=== PATIENT | male | born 1955 | race Caucasian/White ===

== ENCOUNTER 2017-05-05 10:20 | Emergency (ER) | payer MEDICARE ==
[2016-04-27 06:27] VITALS: BMI 28.5
[~2017-05-05 10:20] MED LIST: BAYER CHEWABLE81 MG PO; BENICAR HCT 20-1 TA1 PO; BYSTOLIC10 MG PO; BYSTOLIC20 MG PO; COUMADIN5 MG PO; CRESTOR20 MG PO; CYMBALTA60 MG PO; JANTOVEN7.5 MG PO; PERCOCET 10/3251 TA1 PO; ROBAXIN-750750 MG PO; ZYLOPRIM100 MG PO
== END 2017-05-05 12:54 | disposition home or self-care (01) ==
LOC: D.ER 10:20
DX: M54.30 Sciatica, unspecified side (principal); M54.5 Low back pain

== ENCOUNTER → 2017-05-07 08:49 | Outpatient (CLI) | payer MEDICARE ==
[2016-04-27 06:27] VITALS: BMI 28.5
== END | disposition home or self-care (01) ==
LOC: D.MRI 08:49
DX: M54.31 Sciatica, right side (principal)

== ENCOUNTER 2017-06-10 17:43 | Inpatient (IN) | payer MEDICARE ==
[~2017-06-10] VITALS: Ht 182.9 cm; Wt 70.5 kg
--- NOTE | ~2017-06-10 | OP ---
PATIENT NAME: CECILY HENSLEY MEDICAL RECORD: [id number] :51 LOCATION:D.MS [facility] ADMISSION DATE:06/10/17 SURGEON: YESSI LIZAMA MD DATE OF OPERATION: 06/12/2017 PREOPERATIVE DIAGNOSIS: Synovial cyst formations, epidural mass at L4-L5 on the right. POSTOPERATIVE DIAGNOSIS: Synovial cyst formations, epidural mass at L4-L5 on the right. PROCEDURES: Lumbar laminectomy, medial facetectomy and foraminotomy at L4-L5 on the right with METRx retractor, resection of synovial cyst with microdissection. SURGEON: Yessi Lizama MD DESCRIPTION AND TECHNIQUE: After induction of general endotracheal anesthesia, the patient was rolled prone on chest and hip rolls. The lumbar spine was prepped and draped in usual sterile fashion. Fluoroscopic x-ray and spinal needle localized the L4-L5 interspace on the right side. A series of dilators were used to advance a METRx retractor to the L4-L5 interspace on the right side. The level was confirmed with fluoroscopic x-ray. A microscope and Midas Suman drill were used to perform a laminectomy at L4 and L5 on the right as well as the medial facetectomy and foraminotomy. Hypertrophied ligamentum flavum was removed with Cloward rongeurs. In the process of removing the ligamentum flavum, it was obvious that epidural mass adherent to the ligamentum flavum as well as the dura. This was dissected free with microdissectors and microscope. Following this, the dura was completely decompressed. A further foraminotomy was carried out with a Cloward rongeurs. Following this, meticulous hemostasis was maintained throughout the wound. The wound was irrigated with copious amounts of Ancef irrigant solution. The fascia was closed with 2-0 Vicryl suture and the subdermal layer was closed with 3-0 Vicryl suture. The skin was closed with emely. A sterile dressing was applied to the wound. The patient was awakened in good condition and taken to recovery. All counts were reported as correct. Estimated blood loss was minimal. TRANSINT:[id number] Voice Confirmation ID: [id number] DOCUMENT ID: [id number] YESSI LIZAMA MD CC: [id number] DICTATION DATE: 06/12/171940 ELECTRONIC TECHNOLOGIST: 06/12/172204 ADM IN [facility] [address] [place] [address]
--- NOTE | ~2017-06-10 | CN ---
PATIENT NAME:AYDENCECILY TURNER MEDICAL RECORD: [id number] : 51 LOCATION:D.MS [facility]24 ADMIT DATE: 06/10/17 ACCOUNT: [id number] CONSULTING PHYSICIAN: CRIS DE SANTIAGO MD REFERRING PHYSICIAN: SEILNA CANDELARIO MD DATE OF CONSULTATION: 06/15/2017 Consultation Note Addendum CHIEF COMPLAINT: Bleeding. HISTORY OF PRESENT ILLNESS: I was asked by one of the nurse on the floor to come see this patient. The patient had been admitted and underwent surgery. 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 Anyhow, he accidentally knocked the scab off this and due to a high INR, he has continued to bleed from the area. He has had pretty significant amount of blood loss. I saw the patient and we contacted Dr. Candelario, who allowed me to be a home performance consultant for this patient. We have applied a pulse oximeter probe to the lip as a clamp on the inside and outside of the lip and then applied some Surgicel over the bleeding area. The area is no longer bleeding, so his symptoms are improved. He is a little bit confused due to some anxiolytics and analgesics that he has received, but anyhow at least we have got the bleeding stopped for now. I have also elevated the head of his bed to decrease the venous pressure in his face and hopefully that will help prevent him from rebleeding. This is a consultation note addendum. For the typed portion of the consult note, please see the chart. This would include the past medical and surgical history, allergies, social history, family history, as well as current medications. REVIEW OF SYSTEMS: Positive for back pain, no nausea, no vomiting, no fever, no chills. Positive for some slowed speech, positive for some altered mental status, which is very mild. No chest pain, no shortness of breath. The review of systems is negative other than as is described above. PHYSICAL EXAMINATION: GENERAL: The patient appears acutely ill. He does not appear chronically ill. VITAL SIGNS: Reviewed. EARS: External ears appear normal. HEAD: Bleeding from the lower lip on the left. NECK: Trachea is midline. CHEST: No intercostal retractions. PULMONARY: Nonlabored, no stridor. ABDOMEN: No peritonitis with movement. EXTREMITIES: No peripheral cyanosis. INTEGUMENT: Bleeding from the operative site on the lower lip. PSYCHIATRIC: Normal affect. NEUROLOGIC: Nonfocal, no lethargy. The patient answers questions appropriately; however, his speech is slowed. He is somewhat somnolent as well. BACK: No thoracic kyphosis. LYMPHATICS: No lymphangitic streaking of the exposed extremities. IMPRESSION: Bleeding from the operative site from a dermatologic procedure. Through our interventions, the bleeding has now stopped. CONSULT REPORT [id number] AYDENCECILY TURNER PLAN: I will see the patient on a p.r.n. basis. TRANSINT:[id number] Voice Confirmation ID: [id number] DOCUMENT ID: [id number] CRIS DE SANTIAGO MD CC: [id number] DICTATION DATE: 06/15/171812 ARGON TESTER: 06/15/172015 ADM IN [facility] [address] [place] [address]
--- NOTE | 2017-06-10 18:36 | NUR ---
REC'D IN ROOM ASSESSMENT PER ADMIT PACKET. SALINE LOCK PLACED TO LEFT FOREARM #22G ANGIOICATH. NS AT [facility] STARTED ORDERED.
[2017-06-10] MEDS ORDERED: COUMADIN5 MG PO (18:45)
[2017-06-10] MEDS ORDERED: PERCOCET 10/3251 TA1 PO (18:46)
[2017-06-10 18:48] LABS: BASOPHILS 0.3 % (0-2); EOSINOPHILS 0.4 % (0-7); HEMATOCRIT 38.3 % (42.0-54.0); HEMOGLOBIN 13.4 g/dL (13.5-17.5); IMMATURE GRANULOCYTES 0.1 % (0-5); LYMPHOCYTES 14.6 % (15-50); MCH 31.2 pg (26.0-34.0); MCV 89.1 fL (80.0-100.0); MEAN PLATELET VOLUME 10.6 fL (7.4-10.4); MONOCYTES 6.1 % (2-11); NEUTROPHILS 78.5 % (40-80); PLATELET COUNT 183 10x3/uL (130-400); RDW 13.8 % (11.5-14.5); WBC 7.9 10x3/uL (4.8-10.8)
[2017-06-10 19:01] LABS: INR 2.05 (0.85-1.17); PROTIME 23.1 SECONDS (11.6-15.0)
[2017-06-10] MEDS ORDERED: MULTIPLE VITAMI1 TA1 PO (19:10)
[2017-06-10 19:34] LABS: ALBUMIN 4.2 g/dL (3.4-5.0); ANION GAP 13.9 mmol/L (8-16); CALCIUM 9.8 mg/dL (8.5-10.1); CARBON DIOXIDE 24.8 mmol/L (21.0-32.0); CREATININE - SERUM 1.4 mg/dL (0.6-1.3); POTASSIUM - SERUM 3.7 mmol/L (3.5-5.1); PROTEIN - SERUM 6.8 g/dL (6.4-8.2)
[2017-06-10 20:00] VITALS: BP 135/73
--- NOTE | 2017-06-10 20:47 | NUR ---
C/O PAIN IN RT HIP AND LOWER BACK AREA RATES PAIN LEVEL #8. MORPHINE 2MG IVP GIVEN FOR PAIN CONTROL.
--- NOTE | 2017-06-10 21:00 | NUR ---
MEDS GIVEN PER MAR.
--- NOTE | 2017-06-10 22:00 | NUR ---
PT UP AD NOEL TO BR VOIDS WELL.
--- NOTE | 2017-06-11 | NUR ---
EYES CLOSED RESPIRATIONS WITH EASE AND UNLABORED.
[2017-06-11 01:38] VITALS: BP 124/63; Ht 182.9 cm; Wt 70.5 kg
[2017-06-11 04:00] VITALS: BP 134/65
--- NOTE | 2017-06-11 06:13 | NUR ---
C/O PAIN IN RT HIP AND LOWER BACK AREA RATES PAIN LEVEL #8. MORPHINE 2MG IVP GIVEN FOR PAIN CONTROL.
--- NOTE | 2017-06-11 07:15 | NUR ---
REPORT RECIVED FROM CENTRAL STERILE TECH NURSE. CALL LIGHT IN REACH.
--- NOTE | 2017-06-11 08:29 | NUR ---
AM MEDS ADMINISTERED. MORPHINE 4 MG SIVP. CALL LIGHT IN REACH.
[2017-06-11 08:50] VITALS: BP 155/85
--- NOTE | 2017-06-11 09:50 | NUR ---
ASSESSMENT COMPLETED. CALL LIGHT IN REACH. WILL CONTINUE WITH PLAN OF CARE.
--- NOTE | 2017-06-11 10:15 | NUR ---
STILL C/O PAIN. MORPHINE 4 MG SIVP. CALL LIGHT IN REACH.
--- NOTE | 2017-06-11 11:48 | NUR ---
RESTING QUIETLY IN BED. COMPLAINING OF PAIN TO R LEG WITH INTERMITTENT NUMBNESS AND TINGLING. RATES PAIN 7-8 ON PAIN SCALE.
[2017-06-11 12:03] VITALS: BP 133/68
--- NOTE | 2017-06-11 12:40 | NUR ---
DR. HERNANDEZ IN ROOM AT THIS TIME.
--- NOTE | 2017-06-11 13:01 | NUR ---
Patient Name: CECILY De La [facility] Admission Status: Elective Accout number: [id number] Admission Date: 06-10-2017 : 1955 Admission Diagnosis: Attending: SELINA CANDELARIO Current LOS: 1 Anticipated DC Date: 06-14-2017 Planned Disposition: Home Primary Insurance: MEDICARE A & B Discharge Planning Comments: CM MET WITH PATIENT REGARDING D/C NEEDS AND PLANS. PATIENT STATED HE LIVES WITH HIS SPOUSE (ARDEN) AND SHE WILL DRIVE HIM HOME AT DISCHARGE. THERE ARE 2 STEPS W/O RAILS TO ENTER HOME AND NO STAIRS INSIDE. PATIENT IS INDEPENDENT WITH HIS CARE AND HAS A CANE AT HOME IF NEEDED. PATIENTS PCP IS DR. BURROUGHS AND PHARMACY IS [facility] [address]. PATIENT REFUSING HOME HEALTH AT THIS TIME. CM WILL CONTINUE TO FOLLOW PATIENT WITH D/C NEEDS AND PLANS. PCP DR. MANJEET [facility] [address] [phone] [place] () [phone] Taxation Consultant: Anna Caldwell Is the patient Alert and Oriented? Yes 0 * How many steps to enter\exit or inside your home? 2 0 * PCP MANJEET 0 * Pharmacy [facility] 0 * Preadmission Environment Home with Family 0 * ADLs Independent 0 * Equipment Cane 0 * List name and contact numbers for known caregivers / representatives who currently or will assist patient after discharge: [place] [phone] * Community resources currently utilized None 0 * Additional services required to return to the preadmission environment? Yes 0 * Can the patient safely return to the preadmission environment? Yes 0 * Has this patient been hospitalized within the prior 30 days at any hospital? No 0 Grand Total: 0
--- NOTE | 2017-06-11 14:26 | NUR ---
DENIES NEEDS AT THIS TIME. CALL LIGHT IN REACH.
--- NOTE | 2017-06-11 16:20 | NUR ---
STATES PAIN HAS DECREASED. CALL LIGHT IN REACH.
[2017-06-11 16:21] VITALS: BP 127/62
--- NOTE | 2017-06-11 17:42 | NUR ---
EVENING MEDS ADMINISTERED. CALL LIGHT IN REACH.
[2017-06-11 20:00] VITALS: BP 127/53
[2017-06-12] VITALS: BP 125/48
[2017-06-12 04:00] VITALS: BP 120/58
[2017-06-12 05:00] VITALS: BP 141/61
[2017-06-12 05:40] LABS: BASOPHILS 0 % (0-2); EOSINOPHILS 0 % (0-7); HEMOGLOBIN 12.7 g/dL (13.5-17.5); IMMATURE GRANULOCYTES 0.2 % (0-5); LYMPHOCYTES 6.3 % (15-50); MCH 31.4 pg (26.0-34.0); MCHC 34.3 g/dL (31.0-37.0); MEAN PLATELET VOLUME 11.6 fL (7.4-10.4); MONOCYTES 3.1 % (2-11); NEUTROPHILS 90.4 % (40-80); PLATELET COUNT 179 10x3/uL (130-400); RBC 4.04 10x6/uL (4.20-6.10)
[2017-06-12 05:49] LABS: MCV 91.6 fL (80.0-100.0); WBC 12.1 10x3/uL (4.8-10.8)
[2017-06-12 05:50] LABS: INR 2.44 (0.85-1.17); PROTIME 26.6 SECONDS (11.6-15.0)
[2017-06-12 05:52] LABS: ANION GAP 12.4 mmol/L (8-16); CALCIUM 8.8 mg/dL (8.5-10.1); CARBON DIOXIDE 24.6 mmol/L (21.0-32.0); CREATININE - SERUM 1.1 mg/dL (0.6-1.3)
--- NOTE | 2017-06-12 07:00 | NUR ---
REPORT RECEIVED FROM CITY SUPERINTENDENT OF [employer]CHOOLS NURSE. CALL LIGHT IN REACH.
--- NOTE | 2017-06-12 07:16 | NUR ---
PATIENT IN BED WITH IV INTACT. NO COMPLAINTS AT THIS TIME. CALL LIGHT WITHIN REACH.
[2017-06-12 08:19] VITALS: BP 135/63
--- NOTE | 2017-06-12 08:24 | NUR ---
PREOP MEDS ADMINISTERED PER MIRIAN OLMSTEAD. TO OR VIA BED.
[2017-06-12 11:34] VITALS: BP 150/69
--- NOTE | 2017-06-12 11:35 | NUR ---
RECEIVED BACK TO ROOM. PATIENT IS HAVING BLEEDING FROM HIS MOUTH WHICH HE SAYS HE HAS BEEN HAVING IN RECOVERY ROOM. MIRIAN STEWARD, STATED THAT PATIENT BIT HIS TONGUE BEFORE SURGERY. VS ARE STABLE AT THIS TIME. GAVE PATIENT SOME WARM WATER TO GARGLE HIS MOUTH WITH. ALSO GAVE PATIENT ICE TO HELP.
--- NOTE | 2017-06-12 13:20 | NUR ---
CONTINUES TO BLEED. CALLED RECOVERY NURSE TO INFORM HER.
--- NOTE | 2017-06-12 13:27 | NUR ---
CONSULTED ANESTHESIA REGARDING PATIENT SPITTING UP BLOOD. OSMAR LERMA CRNA AT BEDSIDE. OSMAR LERMA CRNA OBSERVED HIS ORAL CAVITY AND NOTED NO ACTIVE BLEEDING AT THIS TIME. PATIENT BIT HIS TONGUE BEFORE SURGERY. NO PROBLEMS WITH THIS AFTER SURGERY.
--- NOTE | 2017-06-12 13:29 | NUR ---
MIRIAN SARAVIA CALLED BACK TO PACU AT 1320 AND STATED THAT HE STARTED BLEEDING IN HIS MOUTH AGAIN. CONSULTED ANESTHESIA OSMAR LERMA CRNA.
--- NOTE | 2017-06-12 15:20 | NUR ---
STATES HE COULDN'T BREATHE. O2 SAT 99-100% ON ROOM AIR. PATIENT VERY ANXIOUS. APPLIED O2 @ 2L PER NC FOR COMFORT. REFUSES TO HAVE PAIN MEDS.
--- NOTE | 2017-06-12 16:00 | NUR ---
STILL DOES NOT WANT ANY PAIN MEDS AT THIS TIME.
--- NOTE | 2017-06-12 18:05 | NUR ---
INCISION TO BACK WITH BLEEDING. DRSG CHANGED AND LINENS ALSO CHANGED. MORPHINE AND DECADRON IV. SCDs TO BLE. CALL LIGHT IN REACH. WILL CONTINUE WITH PLAN OF CARE.
[2017-06-12 20:00] VITALS: BP 148/78
--- NOTE | 2017-06-12 20:14 | NUR ---
ASSESSMNET PER FLOWSHEET. DRESSING TO LUMBAR AREA INCISION C/D/I. IV PATENT LEFT FOREARM OF NS AT 30CC'S/HR SITE CLEAR. HOB UP 30 DEGREES. SR UP X2 CALL LIGHT WITHIN REACH. C/O PAIN IN HIS BACK/HIP AREA MORPHINE 4MG IVP GIVEN FOR PAIN CONTROL.DR. HERNANDEZ HERE TO SEE PATIENT. PATIENT STILL COUGHING UP BLOOD TINGED SPUTUM. BUT NOT MUCH.
--- NOTE | 2017-06-12 21:30 | NUR ---
MEDS GIVEN PER MAR.
--- NOTE | 2017-06-12 23:22 | NUR ---
C/O INCISIONAL PAIN RATES PAIN LEVEL #8. MORPHINE 4 MG IVP GIVEN FOR PAIN CONTROL.
--- NOTE | 2017-06-13 | NUR ---
RESTING AT THIS TIME SR UP X2 CALL LIGHT WITHIN REACH.
--- NOTE | 2017-06-13 02:05 | NUR ---
C/O PAIN INCISIONAL AREA RATES PAIN LEVEL #6-8. MORPHINE 4MG IVP GIVEN FOR PAIN CONTROL.
--- NOTE | 2017-06-13 05:03 | NUR ---
EYES CLOSED RESPIRATIONS WITH EASE AND UNLABORED.
--- NOTE | 2017-06-13 06:44 | NUR ---
PATIENT STILL COUGHING UP BLOOD IN TISSUE ALL MDS ARE AWARE OF ORAL BLEEDING LOVENOX NOT GIVEN.
[2017-06-13 07:10] LABS: HEMATOCRIT 27.5 % (42.0-54.0); HEMOGLOBIN 9.4 g/dL (13.5-17.5)
--- NOTE | 2017-06-13 08:00 | NUR ---
AWAKE, HIGH FOLWERS, DENIES NEEDS, NO DISTRESS NOTED, CALL LIGHT IN REACH, BED LOWEST POSITION, WILL CONTINUE TO MONITOR
[2017-06-13 08:14] LABS: INR 2.58 (0.85-1.17); PROTIME 27.8 SECONDS (11.6-15.0)
[2017-06-13 08:21] VITALS: BP 116/61
[2017-06-13 12:33] VITALS: BP 118/60
--- NOTE | 2017-06-13 13:44 | NUR ---
PT SITTING UP IN BED WITH NO VISABLE SIGNS OF PAIN OR DISCOMFORT. BED IN LOW POSITION AND CALL LIGHT WITHIN REACH. WILL CONTINUE TO MONITOR.
--- NOTE | 2017-06-13 14:13 | NUR ---
PT STATES HE IS PASSING BLOODY STOOLS WITH CLOTS
[2017-06-13 15:22] LABS: BASOPHILS 0 % (0-2); EOSINOPHILS 0 % (0-7); HEMOGLOBIN 8.4 g/dL (13.5-17.5); IMMATURE GRANULOCYTES 0.5 % (0-5); LYMPHOCYTES 4.3 % (15-50); MCH 30.9 pg (26.0-34.0); MCHC 33.6 g/dL (31.0-37.0); MCV 91.9 fL (80.0-100.0); MEAN PLATELET VOLUME 10.6 fL (7.4-10.4); NEUTROPHILS 89.2 % (40-80); RDW 14.6 % (11.5-14.5); WBC 10.7 10x3/uL (4.8-10.8)
[2017-06-13 15:26] LABS: PLATELET COUNT 130 10x3/uL (130-400); RBC 2.72 10x6/uL (4.20-6.10)
[2017-06-13 16:13] VITALS: BP 130/60
[2017-06-13 19:56] LABS: HEMATOCRIT 24.5 % (42.0-54.0); HEMOGLOBIN 8.4 g/dL (13.5-17.5)
[2017-06-13 20:00] VITALS: BP 143/73
[2017-06-13 21:59] LABS: HEMATOCRIT 23.1 % (42.0-54.0); HEMOGLOBIN 7.9 g/dL (13.5-17.5)
[2017-06-14] VITALS: BP 145/64
[2017-06-14 02:02] LABS: HEMATOCRIT 22.7 % (42.0-54.0); HEMOGLOBIN 7.7 g/dL (13.5-17.5)
[2017-06-14 04:00] VITALS: BP 136/73
[2017-06-14 05:51] LABS: BASOPHILS 0 % (0-2); EOSINOPHILS 0.1 % (0-7); HEMATOCRIT 23.4 % (42.0-54.0); HEMOGLOBIN 7.9 g/dL (13.5-17.5); IMMATURE GRANULOCYTES 1.1 % (0-5); LYMPHOCYTES 8.7 % (15-50); MCH 30.6 pg (26.0-34.0); MCHC 33.8 g/dL (31.0-37.0); MCV 90.7 fL (80.0-100.0); MEAN PLATELET VOLUME 10.3 fL (7.4-10.4); MONOCYTES 7.1 % (2-11); PLATELET COUNT 115 10x3/uL (130-400); RBC 2.58 10x6/uL (4.20-6.10); RDW 14.2 % (11.5-14.5)
[2017-06-14 05:55] LABS: WBC 7.1 10x3/uL (4.8-10.8)
[2017-06-14 06:02] LABS: INR 2.83 (0.85-1.17)
--- NOTE | 2017-06-14 07:45 | NUR ---
PT ASSESSMENT COMPLETE AWAKE AND ALERT ORINETD X 3 LUNGS CLAER BILAT DRESSING NOTED TO LUMBAR SPINE LEDA X 4 INTACT NO BLEEDING NOTED OBEYS ALL COMMANDS CALL LIGHT IN REACH SIDE RAILS UP X 2
[2017-06-14 08:06] VITALS: BP 146/73
--- NOTE | 2017-06-14 10:30 | NUR ---
PT WITH NO DISTRESS NOTED SITTING UP IN CHAIR AT BEDSIDE FOR BATH ALL ADLS PER ASSIST OF STAFF CALL LIGHT IN REACH
[2017-06-14 10:31] LABS: HEMATOCRIT 23.5 % (42.0-54.0); HEMOGLOBIN 8.1 g/dL (13.5-17.5)
[2017-06-14 12:07] VITALS: BP 135/74
[2017-06-14 14:14] LABS: HEMOGLOBIN 8.3 g/dL (13.5-17.5)
[2017-06-14 15:35] VITALS: BP 140/71
--- NOTE | 2017-06-14 18:00 | NUR ---
PT MABEL G WELL IN BED WITH NO DISTRESS NOTED CALL LIGHT IN REACH SIDE RAILS UP
[2017-06-14 18:03] LABS: HEMATOCRIT 23.4 % (42.0-54.0); HEMOGLOBIN 8.1 g/dL (13.5-17.5)
--- NOTE | 2017-06-14 19:00 | NUR ---
REPORT RECEIVED AND CARE OF PT ASSUMED. PT LYING IN SEMI FALCON'S POSITION WATCHING TV. IV IN RIGHT WRIST PATENT WITH NS INFUSING AT 30 ML / HR ; AND PROTONIX INFUSING AT 10 ML / HR. WILL MONITOR CLOSELY FOR NEEDS.
--- NOTE | 2017-06-14 19:54 | NUR ---
GAVE MORPHINE PER PT REQUEST FOR PAIN, ALONG WITH SCHEDULED ROBAXIN IVPB. WILL MONITOR FOR EFFECTIVENESS.
[2017-06-14 20:00] VITALS: BP 134/72
--- NOTE | 2017-06-14 21:33 | NUR ---
HS MEDICATIONS GIVEN. WILL CONTINUE TO MONITOR FOR NEEDS.
--- NOTE | 2017-06-14 21:45 | NUR ---
GAVE HS SNACK OF ICE CREAM X2. WILL CONTINUE TO MONITOR FOR NEEDS.
--- NOTE | 2017-06-14 21:50 | NUR ---
HGB 8.3 THIS CHECK. UNCHANGED FROM PREVIOUS TEST.
[2017-06-14 22:08] LABS: HEMOGLOBIN 8.3 g/dL (13.5-17.5)
--- NOTE | 2017-06-14 23:22 | NUR ---
GAVE MORPINE PER REQUEST FOR PAIN, PER PRN ORDER. WILL CONTINUE TO MONITOR CLOSELY FOR NEEDS.
[2017-06-15] VITALS (12 sets, daily range): BP systolic 129–210; BP diastolic 64–92
--- NOTE | 2017-06-15 01:24 | NUR ---
PT RESTING QUIETLY AT THIS TIME WITH EYES CLOSED AND UNLABORED BREATTHING. WILL CONTINUE TO MONITOR FOR NEEDS.
[2017-06-15 06:06] LABS: BASOPHILS 0 % (0-2); EOSINOPHILS 0 % (0-7); HEMOGLOBIN 7.9 g/dL (13.5-17.5); IMMATURE GRANULOCYTES 3.2 % (0-5); LYMPHOCYTES 8.9 % (15-50); MCH 30.9 pg (26.0-34.0); MCHC 34.3 g/dL (31.0-37.0); MCV 89.8 fL (80.0-100.0); MEAN PLATELET VOLUME 11.3 fL (7.4-10.4); NEUTROPHILS 80.9 % (40-80); PLATELET COUNT 130 10x3/uL (130-400); RBC 2.56 10x6/uL (4.20-6.10); RDW 14.2 % (11.5-14.5); WBC 6.6 10x3/uL (4.8-10.8)
[2017-06-15 06:19] LABS: INR 4.4 (0.85-1.17); PROTIME 42.7 SECONDS (11.6-15.0)
--- NOTE | 2017-06-15 09:00 | NUR ---
RESTING QUIETLY IN BED. DRESSING C/D/I TO LOWER BACK. DENIES ANY NEEDS AT THIS TIME.
--- NOTE | 2017-06-15 15:30 | NUR ---
RESPONDED TO RR. PT. BLEEDING AT OLD SKIN CA REMOVAL SITE UNDER LIP ON LEFT SIDE OF FACE. PRESSURE BEING APPLIED. DR. NEIL IN MED SURGE. HE CAME AND ASSESSED. ORDERS REC'D FOR PRBC X2 UNITS. FFP X1 UNIT. GET A H&H, PT/INR AFTER TRANSFUSED. A&O X3. PT. IS HOLDING PRESSURE ON SITE AT HTIS TIME. CATINA GRIER LPN IS APPLYING PRESSURE AND INPUTING LAB ORDERS.
[2017-06-15 15:42] LABS: HEMATOCRIT 26.3 % (42.0-54.0); HEMOGLOBIN 9.2 g/dL (13.5-17.5)
--- NOTE | 2017-06-15 19:00 | NUR ---
REPORT RECEIVED AND CARE OF PT ASSUMED. PT LYING IN SUPINE POSITION WITH PRESSURE DRESSING ON LEFT LOWER LIP, FROM PREVIOUS BLEEDING EVENT. IV IN RIGHT WRIST PATENT WITH LINE FLUSHING AFTER RECEIVING 1 UNIT OF FFP.
--- NOTE | 2017-06-15 19:40 | NUR ---
GAVE MORPNINE 4 MG IVP PER PT REQUST FOR PAIN. WILL MONITOR FOR EFFECTIVENESS. CALL LIGHT WITHIN REACH.
--- NOTE | 2017-06-15 20:25 | NUR ---
SITED A SECOND IV TO LEFT AC USING 20 GUAGE CATHETER, IN ONE STICK, TO FACILITATE BLOOD ADMINISTRATION. PT TOLERATED WELL.
--- NOTE | 2017-06-15 20:35 | NUR ---
HS MEDICATIONS GIVEN. WILL CONTINUE TO MONITOR FOR NEEDS.
--- NOTE | 2017-06-15 20:58 | NUR ---
STARTED 1ST UNIT OF PRBC'S. VITALS STABLE AND PT IS AFEBRILE.
--- NOTE | 2017-06-15 22:51 | NUR ---
GAVE MORPHINE 4 MG PER PT REQUEST FOR PAIN. WILL CONTINUE TO MONITOR FOR NEEDS.
--- NOTE | 2017-06-15 23:30 | NUR ---
1ST UNIT OF PRBC'S COMPLETE. PT BLOOD PRESSURE ELEVATED DURING TRANSFUSION...RATE WAS DECREASED...NOT ELEVATED AT THIS CHECK.
[2017-06-16] VITALS (12 sets, daily range): BP systolic 140–201; BP diastolic 67–95
--- NOTE | 2017-06-16 | NUR ---
STARTED 2ND UNIT OF PRBC'S. VITALS STABLE AND PT REMAINS AFEBRILE.
[2017-06-16 05:31] LABS: BASOPHILS 0.1 % (0-2); EOSINOPHILS 0.1 % (0-7); HEMATOCRIT 28.9 % (42.0-54.0); HEMOGLOBIN 10.1 g/dL (13.5-17.5); IMMATURE GRANULOCYTES 3.3 % (0-5); LYMPHOCYTES 13.6 % (15-50); MCH 30.9 pg (26.0-34.0); MCHC 34.9 g/dL (31.0-37.0); MCV 88.4 fL (80.0-100.0); MEAN PLATELET VOLUME 10.9 fL (7.4-10.4); MONOCYTES 9.7 % (2-11); NEUTROPHILS 73.2 % (40-80); PLATELET COUNT 123 10x3/uL (130-400); RDW 14.2 % (11.5-14.5)
[2017-06-16 05:37] LABS: RBC 3.27 10x6/uL (4.20-6.10); WBC 8.5 10x3/uL (4.8-10.8)
[2017-06-16 05:47] LABS: INR 3.2 (0.85-1.17); PROTIME 33.1 SECONDS (11.6-15.0)
--- NOTE | 2017-06-16 08:00 | NUR ---
AWAKE AND ALERT. ORIENTED X3. NO C/O AT THIS TIME. LUNGS ARE CLEAR BILATERALLY, NO COUGH NOTED. SKIN IS INTACT WITHOUT REDNESS EXCEPT SMALL INCISION TO MID LOWER BACK, WHICH HAS A DRY INTACT DRESSING IN PLACE. IV TO RIGHT WRIST PATENT WITHOUT REDNESS AT INSERTION SITE. SL TO LEFT AC PATENT WELL WITHOUT REDNESS. DENIES NEEDS.
--- NOTE | 2017-06-16 10:00 | NUR ---
REQUESTED AND GIVEN 4MG MORPHINE SLOW IVP FOR C/O BACK PAIN LEVEL 7. WILL MONITOR.
--- NOTE | 2017-06-16 12:15 | NUR ---
ATE MOST OF LUNCH PER SELF. DENIES NEEDS.
--- NOTE | 2017-06-16 15:15 | NUR ---
REQUESTED AND GIVEN 4MG MORPHINE SLOW IVP FOR C/O BACK PAIN AND MUSCLE STIFFNESS. IV TO RIGHT WRIST D/C R/T REDNESS. WARM MOIST HEAT APPLLIED. DISCHARGE ORDERS RECEIVED. WILL COMPLETE ROBAXIN DOSE PRIOR TO DISCHARGE HOME. DRESSING TO MID LOWER BACK CHANGED. INCISION IS CLEAN AND DRY, WELL APPROXIMATED WITH 4 CLIPS INTACT.
--- NOTE | 2017-06-16 18:15 | NUR ---
DISCHARGED TO HOME AMBULATORY WITH FAMILY. DISCHARGE INSTRUCTIONS GIVEN BOTH VERBALLY AND WRITTEN . ALL QUESTIONS ANSWERED. PATIENT AND VERBALIZED UNDERSTANDING OF SAME. IV TO LEFT FOREARM D/C WITH CATHETER INTACT. NEEDED PRESCRIPTIONS GIVEN TO PATIENT.
--- NOTE | 2017-06-18 20:04 | HP ---
PATIENT: AYDENCECILY TURNER MEDICAL RECORD: [id number] ACCOUNT: [id number] LOCATION:D.MS [facility]24 : 51 ADMISSION DATE: 06/10/17 HISTORY AND PHYSICAL EXAMINATION DATE OF ADMISSION: 06/10/2017 CHIEF COMPLAINT: Intractable back pain with radiculopathy down to the right foot. HISTORY OF PRESENT ILLNESS: This is a 61-year-old white male who has been enduring back pain for 10 weeks. He has been going through physical therapy at [facility]. He states his pain has been getting worse. It is a burning type pain that goes all the way down to his foot. He had an MRI of his lumbar spine last month showing moderate to severe spinal canal stenosis at L4-L5 and moderate to severe bilateral neural foraminal narrowing at L4-L5. He denies any bowel or bladder problems in our office. He is writhing in pain and in tears. He is admitted for further evaluation of this intractable pain now. PAST MEDICAL AND SURGICAL HISTORY: He has had depression, degenerative disc disease, gout, hypertriglyceridemia. He has had a cholecystectomy, ventral hernia repair, right shoulder rotator cuff repair and other orthopedic surgeries. He has had aortic valve repaired twice, on Coumadin. MEDICATIONS: Duloxetine 60 mg once a day, Percocet 1 tablet 4 times a day, allopurinol 100 mg 2 tablets twice a day, Seroquel XR 50 one tablet at night, multivitamin once a day, Crestor 20 mg once a day, Bystolic 1 tablet daily, aspirin 81 mg a day, warfarin 5 mg a day. ALLERGIES: BACTRIM, KEFLEX, CIPRO, and TRIAMTERENE. HABITS: He is a former smoker, drinks an occasional beer. SOCIAL HISTORY: He is . FAMILY HISTORY: Strong for dementia. REVIEW OF SYSTEMS: GENERAL: No major weight changes. HEENT: No particular sinus or allergy problems. RESPIRATORY: No history of emphysema or asthma. GASTROINTESTINAL: No diarrhea or constipation. GENITOURINARY: No significant problems there. MUSCULOSKELETAL: He has history of gout, arthritis and pains in his back. NEUROLOGIC: No seizure activities, no migraine headaches. PSYCHIATRIC: He is depression/anxiety. PHYSICAL EXAMINATION: VITAL SIGNS: In the office blood pressure 152/84, he is afebrile. GENERAL: He was in acute pain. He could not sit still, he could not find a comfortable spot. HEENT: Grossly within normal limits. NECK: Supple. HEART: Regular rate and rhythm with expected click heard from mechanical aortic valve. HISTORY AND PHYSICAL [id number] AYDEN,CECILY SIDNEY LUNGS: Fairly clear. ABDOMEN: Soft. BACK: He has tenderness in the lumbar area and just to the right of the midline, radiating down the leg. Straight leg raises on the left is negative, right is positive down to the foot. ASSESSMENT: 1. Intractable back pain with radiculopathy. 2. MRI of the lumbar spine done at [place] last month showing moderate to severe at L4-L5 canal stenosis with moderate to severe bilateral neural foraminal narrowing. PLAN: He is admitted for pain control, other tests, and procedures. Dr. Liazma has been consulted. The patient has an appointment with Dr. Lizama, but it is almost 2 months according to the patient and his . Other tests and procedures as warranted. TRANSINT:[id number] Voice Confirmation ID: [id number] DOCUMENT ID: [id number] SELINA CANDELARIO MD at 2004 CC: [id number] DICTATION DATE: 06/11/17 0046 REROLLING MACHINE OPERATOR: 06/11/17 0137 DIS IN 06/16/17 [facility] [address] [place] [id number]
== END 2017-06-16 18:15 | disposition home or self-care (01) | DRG 520 ==
LOC: D.MS 17:43
PROVIDERS: Family Medicine; Neurological Surgery; ADMIT Family Medicine
PROC: 00B Central Nervous System and Cranial Nerves, Excision (ICD-10-PCS; 2017-06-12)
PROC: 01NB3ZZ Release Lumbar Nerve, Percutaneous Approach (ICD-10-PCS; principal; 2017-06-12 08:30)
DX: M51.16 Intervertebral disc disorders with radiculopathy, lumbar region (principal); M71.38 Other bursal cyst, other site; M48.06 Spinal stenosis, lumbar region; Z95.2 Presence of prosthetic heart valve; Z79.01 Long term (current) use of anticoagulants; I10 Essential (primary) hypertension

== ENCOUNTER 2017-06-27 23:58 | Emergency (ER) | payer MEDICARE ==
[2017-06-11 01:38] VITALS: BMI 21.0
[~2017-06-27 23:58] MED LIST changes: +MULTIPLE VITAMI1 TA1 PO
[2017-06-28 01:15] LABS: BASOPHILS 0.4 % (0-2); EOSINOPHILS 2.9 % (0-7); HEMATOCRIT 30.9 % (42.0-54.0); HEMOGLOBIN 10.4 g/dL (13.5-17.5); IMMATURE GRANULOCYTES 0.2 % (0-5); LYMPHOCYTES 23.8 % (15-50); MCH 30.9 pg (26.0-34.0); MCHC 33.7 g/dL (31.0-37.0); MCV 91.7 fL (80.0-100.0); MEAN PLATELET VOLUME 9.9 fL (7.4-10.4); MONOCYTES 6.4 % (2-11); NEUTROPHILS 66.3 % (40-80); RBC 3.37 10x6/uL (4.20-6.10); RDW 14.9 % (11.5-14.5); WBC 5.2 10x3/uL (4.8-10.8)
[2017-06-28 01:16] LABS: PLATELET COUNT 169 10x3/uL (130-400)
[2017-06-28 01:46] LABS: APTT 43.2 SECONDS (22.8-39.4); INR 2.72 (0.85-1.17)
== END 2017-06-28 01:58 | disposition home or self-care (01) ==
LOC: D.ER 23:58
PROVIDERS: Emergency Medicine; Physician Assistant
DX: L76.22 Postprocedural hemorrhage of skin and subcutaneous tissue following other procedure (principal); Z79.01 Long term (current) use of anticoagulants; I10 Essential (primary) hypertension; Z85.828 Personal history of other malignant neoplasm of skin

== ENCOUNTER 2019-06-27 06:34 | Observation (INO) | payer MEDICARE ==
[~2019-06-27] VITALS: Ht 182.9 cm; Wt 90.9 kg
[2019-06-27 07:00] LABS: BASOPHILS 0.3 % (0-2); EOSINOPHILS 4.3 % (0-7); HEMATOCRIT 39.8 % (42.0-54.0); HEMOGLOBIN 13.6 g/dL (13.5-17.5); IMMATURE GRANULOCYTES 0.3 % (0-5); LYMPHOCYTES 23.2 % (15-50); MCH 31.6 pg (26.0-34.0); MCHC 34.2 g/dL (31.0-37.0); MCV 92.3 fL (80.0-100.0); MEAN PLATELET VOLUME 10.3 fL (7.4-10.4); MONOCYTES 9.7 % (2-11); NEUTROPHILS 62.2 % (40-80); PLATELET COUNT 181 10x3/uL (130-400); RBC 4.31 10x6/uL (4.20-6.10); RDW 13.8 % (11.5-14.5); WBC 6.2 10x3/uL (4.8-10.8)
[2019-06-27 07:10] VITALS: BP 168/95
[2019-06-27 07:10] LABS: INR 1.6 (0.85-1.17); PROTIME 18.4 SECONDS (11.6-15.0)
[2019-06-27 07:16] LABS: ALBUMIN 3.7 g/dL (3.4-5.0); ALKALINE PHOSPHATASE 82 U/L (46-116); ALT (SGPT) 38 U/L (10-68); BILIRUBIN - TOTAL 0.93 mg/dL (0.2-1.3); CALC OSMOLALITY 283 mosm/kg (275-300); CALCIUM 8.6 mg/dL (8.5-10.1); CARBON DIOXIDE 30.2 mmol/L (21.0-32.0); CHLORIDE - SERUM 104 mmol/L (98-107); CREATININE - SERUM 1.4 mg/dL (0.6-1.3); GLUCOSE 104 mg/dL (74-106); POTASSIUM - SERUM 4.3 mmol/L (3.5-5.1); PROTEIN - SERUM 7.3 g/dL (6.4-8.2); SODIUM 140 mmol/L (136-145); UREA NITROGEN 26 mg/dL (7-18); eGFR NON AFRICAN AMERICAN 54 mL/min (90-120)
[2019-06-27 07:20] LABS: CREATINE KINASE 66 UL (21-232)
[2019-06-27 07:25] LABS: TROPONIN-I < 0.017 ng/mL (0.000-0.060)
[2019-06-27 08:56] VITALS: BP 148/86
[2019-06-27] MEDS ORDERED: BAYER CHEWABLE81 MG PO (11:08)
--- NOTE | 2019-06-27 11:10 | NUR ---
ALERT AND ORIENTED X4. HRRR AND DENEIES ANY CHEST PAIN OR DISCOMFORT. LUNGS CTA AND DENIES ANY SOB OR DYSPNEA. NO PERIPHERAL EDEMA NOTED. ENCOURAGED TO USE CALL LIGHT FOR ASSSIT.
[2019-06-27 11:17] VITALS: BP 165/83; Ht 182.9 cm; Wt 90.9 kg
--- NOTE | 2019-06-27 19:30 | NUR ---
PT ALERT AND ORIENTED. ANSWERS QUESTIONS APPROPRIATELY. HAS SALINE LOCKED IV TO THE LEFT AC. REQUESTS PRN PERCOCET WITH BEDTIME MEDS, STATES "I TAKE ONE EVERY NIGHT BEFORE BED." SPOKE IN GREAT LENGTH TO PATIENT ABOUT INR AND THERAPEUTIC RANGES. PATIENT DENIES FURTHER NEEDS AT THIS TIME. EDUCATED ON HOW TO USE CALL LIGHT. DENIES FURTHER NEEDS. CPOC.
[2019-06-27 20:01] VITALS: BP 120/80
[2019-06-28] VITALS: BP 138/84
--- NOTE | 2019-06-28 01:06 | NUR ---
I have reviewed this patient and I concur with the Shift Assessment completed by the Licensed Practical Nurse today this shift.
[2019-06-28 04:00] VITALS: BP 142/79
[2019-06-28 05:38] LABS: BASOPHILS 0.6 % (0-2); EOSINOPHILS 4.3 % (0-7); HEMATOCRIT 38.1 % (42.0-54.0); HEMOGLOBIN 12.4 g/dL (13.5-17.5); LYMPHOCYTES 28.4 % (15-50); MCH 30.1 pg (26.0-34.0); MCHC 32.5 g/dL (31.0-37.0); MCV 92.5 fL (80.0-100.0); MEAN PLATELET VOLUME 10.2 fL (7.4-10.4); MONOCYTES 7.6 % (2-11); NEUTROPHILS 59.1 % (40-80); PLATELET COUNT 165 10x3/uL (130-400); RBC 4.12 10x6/uL (4.20-6.10); RDW 13.6 % (11.5-14.5); WBC 4.9 10x3/uL (4.8-10.8)
[2019-06-28 05:57] LABS: ALBUMIN 3.2 g/dL (3.4-5.0); ANION GAP 10.5 mmol/L (8-16); BILIRUBIN - TOTAL 0.67 mg/dL (0.2-1.3); CALCIUM 8.6 mg/dL (8.5-10.1); CARBON DIOXIDE 29.2 mmol/L (21.0-32.0); CREATININE - SERUM 1.2 mg/dL (0.6-1.3); POTASSIUM - SERUM 4.7 mmol/L (3.5-5.1); PROTEIN - SERUM 6.4 g/dL (6.4-8.2)
[2019-06-28 05:59] LABS: INR 1.65 (0.85-1.17); PROTIME 18.9 SECONDS (11.6-15.0)
[2019-06-28 08:11] VITALS: BP 134/68
--- NOTE | 2019-06-28 09:00 | NUR ---
alert and oriented with no s/s of abnormal bleeding noted or s/s of dvt or cva. good rom of ext.x4 and up adlib. encouraged to use calllight foer assist.
[2019-06-28 14:11] VITALS: BP 145/85
[2019-06-28] MEDS ORDERED: LOVENOX INJ100 MG/ML SC (14:38)
[2019-06-28] MEDS ORDERED: COUMADIN7.5 MG PO (14:39)
--- NOTE | 2019-06-28 15:09 | MORECARE ---
CASE MANAGEMENT DISCHARGE SUMMARY PATIENT: CECILY HENSLEY UNIT: [id number] ADM DATE: 06/27/19 AGE: 63 : 53 SEX: M ROOM/BED: D.2227 AUTHOR: CHELSEY CISNEROS PHYSICIAN: REFERRING PHYSICIAN: YESSI NEIL MD DATE OF SERVICE: 06/28/19 Discharge Plan Patient Name: CECILY HENSLEY [facility] [facility] 1955 Planned Disposition: Home Anticipated Discharge Date: 06/28/19 Discharge Date: Expected LOS: 1 Initial Reviewer: [email or web address] Initial Review Date: 06/27/2019 Generated: 06/28/19 4:08 pm Patient Name: CECILY HENSLEY Page 13954 at 1509 All edits/amendments must be made on the electronic document DICTATION DATE: 06/28/19 1508 MAJOR ASSEMBLY INSPECTOR: ALEX 06/28/19 1508 RPT#: [id number] DC DATE: STATUS: ADM IN [facility] [address] [place] [address] END OF REPORT
--- NOTE | 2019-06-28 15:16 | MORECARE ---
CASE MANAGEMENT DISCHARGE SUMMARY PATIENT: CECILY HENSLEY UNIT: [id number] ADM DATE: 06/27/19 AGE: 63 : 51 SEX: M ROOM/BED: D.2227 AUTHOR: CHELSEY CISNEROS PHYSICIAN: REFERRING PHYSICIAN: YESSI NEIL MD DATE OF SERVICE: 06/28/19 Discharge Plan Patient Name: [facility]ECILY HENSLEY [facility] [facility] 1955 Planned Disposition: Home Anticipated Discharge Date: 06/28/19 Discharge Date: Expected LOS: 1 Initial Reviewer: [email or web address] Initial Review Date: 06/27/2019 Generated: 06/28/19 4:15 pm DCPIA - Discharge Planning Initial Assessment Updated by [email or web address]: Francesca Hauser on 06/28/19 3:13 pm * Is the patient Alert and Oriented? Yes * How many steps to enter\exit or inside your home? RAMP * PCP DR NEIL * Pharmacy [facility] * Preadmission Environment Home with Family * ADLs Independent * Equipment Cane Crutch Rolling Walker Shower Chair Walker * Other Equipment N/A * List name and contact numbers for known caregivers / representatives who currently or will assist patient after discharge: FILEMON HENSLEY- [facility]- [phone] * Verbal permission to speak to the caregivers and representatives has been obtained from the patient. No * Community resources currently utilized None * Please name any agencies selected above. N/A * Additional services required to return to the preadmission environment? No * Can the patient safely return to the preadmission environment? Yes * Has this patient been hospitalized within the prior 30 days at any hospital? No Last DP export: 06/28/19 2:09 p Patient Name: CECILY HENSLEY Page 51277 at 1516 All edits/amendments must be made on the electronic document DICTATION DATE: 06/28/195 HAND FINISHER: ALEX 06/28/191514 RPT#: [id number] DC DATE: STATUS: ADM IN [facility] [address] [place] [address] END OF REPORT
--- NOTE | 2019-06-28 15:23 | MORECARE ---
CASE MANAGEMENT DISCHARGE SUMMARY PATIENT: CECILY HENSLEY UNIT: [id number] ADM DATE: 06/27/19 AGE: 63 : 51 SEX: M ROOM/BED: D.2227 AUTHOR: AMELIA,DOC PHYSICIAN: REFERRING PHYSICIAN: YESSI NEIL MD DATE OF SERVICE: 06/28/19 Discharge Plan Patient Name: CECILY HENSLEY Facility: [facility]:[place] : 1955 Planned Disposition: Home Anticipated Discharge Date: 06/28/19 Discharge Date: Expected LOS: 1 Initial Reviewer: [email or web address] Initial Review Date: 06/27/2019 Generated: 06/28/19 4:23 pm Comments DCP- Discharge Planning Updated by [id number]: Francesca Hauser on 06/28/19 2:[address] HOLLAND ADVISED CM HE WOULD BE DISCHARGING THE PATIENT TO HOME ON LOVENOX INJECTIONS TODAY. CM VISITED THE PATIENT. HE IS DRESSED AND READY FOR DISCHARGE. HE INFORMED THE CM HE HAS ADMINISTERED LOVENOX PREVIOUSLY. HE HAS A MECHANICAL HEART VALVE AND HAS HAD TO STOP COUMADIN FOR PROCEDURES THEN SELF ADMINISTER LOVENOX TO BRIDGE W/ COUMADIN UNTIL LEVEL IS THERAPEUTIC. HE IS . HIS CAN ASSIST HIM IF HELP IS NEEDED. HE DOES NOT HAVE ANY HEALTH SERVICES OR COMMUNITY SERVICES. DOES NOT DESIRE ANY HOME HEALTH SERVICES. HE HAS A CANE, WALKER AND SHOWER BENCH FROM WHEN HE HAD KNEE SURGERY. HAS NO DME NEEDS. HIS WILL PROVIDE TRANSPORTATION TO HOME. PHARMACY- [facility] ON [address]. CM EXPLAINED DISCHARGE IMM. PATIENT IS FAMILIAR AND HAD NO QUESTIONS OR CONCERNS. HE IS ANXIOUS FOR DISCHARGE TO HOME. SIGNATURES OBTAINED ON ORIGINAL COPY FOR THE PATIENT AND ORIGINAL COPY FOR THE PATIENT'S CHART. DCPIA - Discharge Planning Initial Assessment Updated by [id number]: Francesca Hauser on 06/28/19 3:13 pm * Is the patient Alert and Oriented? Yes * How many steps to enter\exit or inside your home? RAMP * PCP DR NEIL * Pharmacy [facility] ON [address] * Preadmission Environment Home with Family * ADLs Independent * Equipment Cane Crutch Rolling Walker Shower Chair Walker * Other Equipment N/A * List name and contact numbers for known caregivers / representatives who currently or will assist patient after discharge: FILEMON HENSLEY- - [phone] * Verbal permission to speak to the caregivers and representatives has been obtained from the patient. No * Community resources currently utilized None * Please name any agencies selected above. N/A * Additional services required to return to the preadmission environment? No * Can the patient safely return to the preadmission environment? Yes * Has this patient been hospitalized within the prior 30 days at any hospital? No Coverage Notice Reviewer: [id number] Lalitha Hauser Notice Issued Date-Time: 06/28/2019 15:05 Notice Type: IM Discharge Notice Notice Delivered To: Patient Relationship to Patient: Self Card Cutter Name: Delivery Method: - Marlene Days: Prior Verbal Notification: Recipient Understood Notice: Recipient Signature: Med Rec Note Co-signed by Attending: Coverage Notice Comment: Last DP export: 06/28/19 2:16 p Patient Name: CECILY HENSLEY Page [id number] at 1523 All edits/amendments must be made on the electronic document DICTATION DATE: 06/28/19 1523 AIDS COUNSELOR: ALEX 06/28/19 1523 RPT#: [id number] DC DATE: STATUS: ADM IN [facility] [address] [place] [address] END OF REPORT
--- NOTE | 2019-06-28 15:38 | MORECARE ---
CASE MANAGEMENT DISCHARGE SUMMARY PATIENT: CECILY HENSLEY UNIT: [id number] ADM DATE: 06/27/19 AGE: 63 : 53 SEX: M ROOM/BED: D.2227 AUTHOR: AMELIA,DOC PHYSICIAN: REFERRING PHYSICIAN: YESSI NEIL MD DATE OF SERVICE: 06/28/19 Discharge Plan Patient Name: CECILY HENSLEY [facility] [facility] 1955 Planned Disposition: Home Anticipated Discharge Date: 06/28/19 Discharge Date: Expected LOS: 1 Initial Reviewer: [email or web address] Initial Review Date: 06/27/2019 Generated: 06/28/19 4:37 pm Comments DCP- Discharge Planning Updated by [id number]: Francesca Hauser on 06/28/19 2:[address] PATIENT'S PHARMACY HAS 0 DOSES OF LOVENOX. THEY WILL OBTAIN THE 10TH DOSE. IT WILL COST THE PATIENT APPROXIAMTELY $150.00. MICAH ADVISED THE PATIENT OF THE ABOVE. HE IS COGNIZANT AND IN AGREEMENT TO OBTAIN LOVENOX. DCP- Discharge Planning Updated by [id number]: Francesca Hauser on 06/28/19 2:[address] HOLLAND ADVISED CM HE WOULD BE DISCHARGING THE PATIENT TO HOME ON LOVENOX INJECTIONS TODAY. CM VISITED THE PATIENT. HE IS DRESSED AND READY FOR DISCHARGE. HE INFORMED THE CM HE HAS ADMINISTERED LOVENOX PREVIOUSLY. HE HAS A MECHANICAL HEART VALVE AND HAS HAD TO STOP COUMADIN FOR PROCEDURES THEN SELF ADMINISTER LOVENOX TO BRIDGE W/ COUMADIN UNTIL LEVEL IS THERAPEUTIC. HE IS . HIS CAN ASSIST HIM IF HELP IS NEEDED. HE DOES NOT HAVE ANY HEALTH SERVICES OR COMMUNITY SERVICES. DOES NOT DESIRE ANY HOME HEALTH SERVICES. HE HAS A CANE, WALKER AND SHOWER BENCH FROM WHEN HE HAD KNEE SURGERY. HAS NO DME NEEDS. HIS WILL PROVIDE TRANSPORTATION TO HOME. PHARMACY- [facility] ON [address]. CM EXPLAINED DISCHARGE IMM. PATIENT IS FAMILIAR AND HAD NO QUESTIONS OR CONCERNS. HE IS ANXIOUS FOR DISCHARGE TO HOME. SIGNATURES OBTAINED ON ORIGINAL COPY FOR THE PATIENT AND ORIGINAL COPY FOR THE PATIENT'S CHART. DCPIA - Discharge Planning Initial Assessment Updated by [id number]: Francesca Hauser on 06/28/19 3:13 pm * Is the patient Alert and Oriented? Yes * How many steps to enter\exit or inside your home? RAMP * PCP DR NEIL * [facility]acy [facility] * Preadmission Environment Home with Family * ADLs Independent * Equipment Cane Crutch Rolling Walker Shower Chair Walker * Other Equipment N/A * List name and contact numbers for known caregivers / representatives who currently or will assist patient after discharge: FILEMON FERRISMO- - [phone] * Verbal permission to speak to the caregivers and representatives has been obtained from the patient. No * Community resources currently utilized None * Please name any agencies selected above. N/A * Additional services required to return to the preadmission environment? No * Can the patient safely return to the preadmission environment? Yes * Has this patient been hospitalized within the prior 30 days at any hospital? No Coverage Notice Reviewer: [id number] - Francesca Hauser Notice Issued Date-Time: 06/28/2019 15:05 Notice Type: IM Discharge Notice Notice Delivered To: Patient Relationship to Patient: Self Airborne And Air Delivery Specialist Name: Delivery Method: HAND - Hand Delivered Marlene Days: Prior Verbal Notification: Recipient Understood Notice: Yes Recipient Signature: Yes Med Rec Note Co-signed by Attending: Coverage Notice Comment: CM SERVED DISCHARGE IMM AFTER EXPLAINING FIRST. PATIENT HAD NO QUESTIONS OR CONCERNS. SIGNED COPY TO THE PATIENT. SIGNED COPY TO THE HARD COVER CHART. Last DP export: 06/28/19 2:23 p Patient Name: CECILY HENSLEY Page [phone] at 1538 All edits/amendments must be made on the electronic document DICTATION DATE: 06/28/191536 ORAL SURGERY TECHNICIAN: ALEX 06/28/191536 RPT#: [id number] DC DATE: STATUS: ADM IN [facility] [address] [place] [address] END OF REPORT
--- NOTE | 2019-06-28 16:06 | NUR ---
IV DISCNTINUED AND VERBALIZED UNDERSTANDING OF DISCHARGE INSTRUCTIONS. STBEL AT TIME OF DEPARTURE AND DISCHARGED UNDER CARE OF FAMILY.
--- NOTE | 2019-06-30 15:24 | MORECARE ---
CASE MANAGEMENT DISCHARGE SUMMARY PATIENT: CECILY HENSLEY UNIT: [id number] ADM DATE: 06/27/19 AGE: 63 : 51 SEX: M ROOM/BED: D.2227 AUTHOR: AMELIA,DOC PHYSICIAN: REFERRING PHYSICIAN: YESSI NEIL MD DATE OF SERVICE: 06/30/19 Discharge Plan Patient Name: CECILY HENSLEY [facility] [facility] 1955 Planned Disposition: Home Anticipated Discharge Date: 06/28/19 Discharge Date: 06/28/2019 Expected LOS: 1 Initial Reviewer: [email or web address] Initial Review Date: 06/27/2019 Generated: 06/30/19 4:23 pm DCP- Discharge Planning Updated by [email or web address]: Francesca Hauser on 06/28/19 2:[address] PATIENT'S PHARMACY HAS 0 DOSES OF LOVENOX. THEY WILL OBTAIN THE 10TH DOSE. IT WILL COST THE PATIENT APPROXIAMTELY $150.00. CM ADVISED THE PATIENT OF THE ABOVE. HE IS COGNIZANT AND IN AGREEMENT TO OBTAIN LOVENOX. DCP- Discharge Planning Updated by [id number]: Francesca Hauser on 06/28/19 2:[address] HOLLAND ADVISED CM HE WOULD BE DISCHARGING THE PATIENT TO HOME ON LOVENOX INJECTIONS TODAY. CM VISITED THE PATIENT. HE IS DRESSED AND READY FOR DISCHARGE. HE INFORMED THE CM HE HAS ADMINISTERED LOVENOX PREVIOUSLY. HE HAS A MECHANICAL HEART VALVE AND HAS HAD TO STOP COUMADIN FOR PROCEDURES THEN SELF ADMINISTER LOVENOX TO BRIDGE W/ COUMADIN UNTIL LEVEL IS THERAPEUTIC. HE IS . HIS CAN ASSIST HIM IF HELP IS NEEDED. HE DOES NOT HAVE ANY HEALTH SERVICES OR COMMUNITY SERVICES. DOES NOT DESIRE ANY HOME HEALTH SERVICES. HE HAS A CANE, WALKER AND SHOWER BENCH FROM WHEN HE HAD KNEE SURGERY. HAS NO DME NEEDS. HIS WILL PROVIDE TRANSPORTATION TO HOME. PHARMACY- [facility] ON [address]. CM EXPLAINED DISCHARGE IMM. PATIENT IS FAMILIAR AND HAD NO QUESTIONS OR CONCERNS. HE IS ANXIOUS FOR DISCHARGE TO HOME. SIGNATURES OBTAINED ON ORIGINAL COPY FOR THE PATIENT AND ORIGINAL COPY FOR THE PATIENT'S CHART. DCPIA - Discharge Planning Initial Assessment Updated by [id number]: Francesca Hauser on 06/28/19 3:13 pm * Is the patient Alert and Oriented? Yes * How many steps to enter\exit or inside your home? RAMP * PCP DR NEIL * Pharmacy [facility] * Preadmission Environment Home with Family * ADLs Independent * Equipment Cane Crutch Rolling Walker Shower Chair Walker * Other Equipment N/A * List name and contact numbers for known caregivers / representatives who currently or will assist patient after discharge: FILEMON FERRISMO- [facility]- [phone] * Verbal permission to speak to the caregivers and representatives has been obtained from the patient. No * Community resources currently utilized None * Please name any agencies selected above. N/A * Additional services required to return to the preadmission environment? No * Can the patient safely return to the preadmission environment? Yes * Has this patient been hospitalized within the prior 30 days at any hospital? No Coverage Notice Reviewer: [id number] - Francesca Hauser Notice Issued Date-Time: 06/28/2019 15:05 Notice Type: IM Discharge Notice Notice Delivered To: Patient Relationship to Patient: Self Cartography Teacher Name: Delivery Method: HAND - Hand Delivered Marlene Days: Prior Verbal Notification: Recipient Understood Notice: Yes Recipient Signature: Yes Med Rec Note Co-signed by Attending: Coverage Notice Comment: CM SERVED DISCHARGE IMM AFTER EXPLAINING FIRST. PATIENT HAD NO QUESTIONS OR CONCERNS. SIGNED COPY TO THE PATIENT. SIGNED COPY TO THE HARD COVER CHART. Last DP export: 06/28/19 2:38 p Patient Name: CECILY HENSLEY Page [phone] at 1524 All edits/amendments must be made on the electronic document DICTATION DATE: 06/30/19 1523 DRILL SETUP OPERATOR: ALEX 06/30/19 152 RPT#: [id number] DC DATE:06/28/19 STATUS: DIS IN [facility] [address] [place] [address] END OF REPORT
== END 2019-06-28 16:06 | disposition home or self-care (01) ==
LOC: D.ER 06:34 → OBSVTIME 09:19 → D.MS 09:19 → D.ER 09:19 → D.MS 06-28 16:06
PROVIDERS: Emergency Medicine; Family Medicine; ADMIT Family Medicine; ATTEND Family Medicine
DX: R79.1 Abnormal coagulation profile (principal); Z95.2 Presence of prosthetic heart valve; R42 Dizziness and giddiness; I10 Essential (primary) hypertension

== ENCOUNTER → 2019-09-14 10:33 | Outpatient (CLI) | payer MEDICARE ==
[2019-06-27 11:17] VITALS: BMI 27.2
[~2019-09-14 10:33] MED LIST changes: +COUMADIN7.5 MG PO; +LOVENOX INJ100 MG/ML SC
== END | disposition home or self-care (01) ==
LOC: D.MRI 10:30
PROVIDERS: ATTEND Orthopaedic Surgery
DX: M75.121 Complete rotator cuff tear or rupture of right shoulder, not specified as traumatic (principal)

== ENCOUNTER → 2019-10-13 12:21 | Outpatient (CLI) | payer MEDICARE ==
[2019-06-27 11:17] VITALS: BMI 27.2
--- NOTE | ~2019-10-13 | EC ---
PATIENT:CECILY HENSLEY DATE OF SERVICE: 10/13/19 SEX: M MEDICAL RECORD: [id number] DATE OF : [birth year] [facility] AGE OF PATIENT: 64 ADMISSION DATE: 10/13/19 REFERRING PHYSICIAN: INTERPRETING PHYSICIAN: GALILEO PRAKASH MD ECHOCARDIOGRAM REPORT ECHO CHARGES 4 ECHO COMPLETE Date: 10/13/19 CLINICAL DIAGNOSIS: AVR H/O HTN/A-FIB ECHOCARDIOGRAPHIC MEASUREMENTS (adult normal given) AC root (d.<3.7cm) 3.2 cm LV Septum d (<1.2 cm> 1.2 cm Valve Excursion 1.0 cm LV Septum (systole) 2.0 cm Left Atria (s.<4.0cm> 5.9 cm LVPW d(<1.2cm) 1.2 cm RV (d.<2.3cm) 3.1 cm LVPW (sytole) 2.2 cm LV diastole(<5.6CM) 7.3 cm MV E-F(>70mm/sec) cm LV systole 4.6 cm LVOT Diameter 1.9 cm MV exc.(>10mm) cm Est.ejection fraction (50-75%) % DOPPLER: LVIT cm/sec A 101 cm/sec E 69.0 cm/sec LA cm/sec RVSP 35.1 mmHg LVOT 75.0 cm/sec AOP1/2T m/s Asc. Ao 165 cm/sec RVOT 74.0 cm/sec RA cm/sec PA 111 cm/sec AV Gradient Peak 11.0 mmHg AV Mean 5.4 mmHg AV Area 1.6 cm MV Gradient Peak 4.6 mmHg MV Mean 1.9 mmHg MV Area cm COMMENTS: OP - HC Creative Services Producer: Shahriar BECERRAOE Crossing Supervisor: 1 Dr. Prakash TAPE# PACS Pericardial Effusion N DATE OF SERVICE: 10/13/2019 FINDINGS: 1. Left ventricular chamber size is moderately dilated. Left ventricular systolic function is mildly reduced at 40% to 45%. 2. Left atrium is enlarged at 5.9 cm. Right atrium and right ventricular chamber sizes are mildly dilated. 3. Valvular structures: Aortic valve replacement with a mechanical prosthesis with normal structure and function in this position, elsewise valvular structures have normal structure and motion. ECHOCARDIOGRAM REPORT [id number] CECILY HENSLEY 4. Doppler interrogation elsewise reveals moderate mitral regurgitation, mild tricuspid regurgitation, no other valvular insufficiency or stenosis. 5. No evidence of pericardial effusion or left ventricular thrombus. TRANSINT:[id number] Voice Confirmation ID: [id number] DOCUMENT ID: [id number] GALILEO PRAKASH MD CC: [id number] DICTATION DATE: 10/13/19 163 CONFERENCE PLANNING MANAGER: 10/13/19 2248 [facility] [address] [place] [id number]
== END | disposition home or self-care (01) ==
LOC: D.HCCECHO 12:21
PROVIDERS: ATTEND Internal Medicine Interventional Cardiology
DX: I10 Essential (primary) hypertension (principal)

== ENCOUNTER 2020-01-22 10:20 | Day surgery (SDC) | payer MEDICARE ==
[~2020-01-22] VITALS: Ht 182.9 cm; Wt 92.5 kg
[~2020-01-22 10:20] MED LIST changes: +DILAUDID4 MG PO; +METOPROLOL TART50 MG PO; +PERCOCET 5-3251 TAB PO; +VISTARIL50 MG PO
[2020-01-22 10:57] LABS: INR 2.36 (0.85-1.17); PROTIME 25.5 SECONDS (11.6-15.0)
[2020-01-22 10:58] LABS: APTT 44.1 SECONDS (22.8-39.4)
[2020-01-22 11:08] LABS: HEMATOCRIT 38.6 % (42.0-54.0); HEMOGLOBIN 12.8 g/dL (13.5-17.5); MCH 30.3 pg (26.0-34.0); MCHC 33.2 g/dL (31.0-37.0); MCV 91.3 fL (80.0-100.0); MEAN PLATELET VOLUME 9.9 fL (7.4-10.4); RBC 4.23 10x6/uL (4.20-6.10); RDW 14.3 % (11.5-14.5); WBC 5.1 10x3/uL (4.8-10.8)
[2020-01-22 11:19] VITALS: BP 123/83; Ht 182.9 cm; Wt 92.5 kg
[2020-01-22] MEDS ORDERED: DILAUDID4 MG PO (14:13)
--- NOTE | 2020-01-22 15:47 | NUR ---
1430-VSS.WOUND VAC INTACT AT SUCTIONS. HAS F/U SATURDAY AT DR HE. IV REMOVED WITH CATH INTACT,DISPOSED INTO SHARPS.COVERED WITH GUAZE,SECURED WITH MEDIPORE TAPE.
--- NOTE | 2020-01-22 15:48 | NUR ---
1435-REVIEWED POST OPERATIVE INSTRUCTIONS.VERBALIZED UNDERSTANDING. ESCORTED OUT VIA W/C WITH SPOUSE AWAITING TO DRIVE HOME
--- NOTE | 2020-01-22 15:49 | NUR ---
0688-REVIEWED POST OPERATIVE INSTRUCTIONS. VERBALIZED UNDERSTANDING. ESCORTED OUT VIA W/C WITH SPOUSE AWAITING TO DRIVE HOME
--- NOTE | 2020-01-22 15:54 | NUR ---
1540-REVIEWED POST OPERATIVE INSTRUCTIONS.VERBALIZED UNDERSTANDING. ESCORTED OUT VIA W/C WITH SPOUSE AWAITING TO DRIVE HOME
--- NOTE | 2020-01-23 10:34 | OP ---
PATIENT NAME: CECILY HENSLEY MEDICAL RECORD: [id number] :51 LOCATION:[facility] ADMISSION DATE: SURGEON: FARHAN HUERTA DO DATE OF OPERATION: 01/22/2020 PROCEDURE PERFORMED: Left lower extremity hematoma evacuation with irrigation, debridement, and Kerecis application. PREOPERATIVE DIAGNOSIS: Left lower extremity hematoma and open wound. POSTOPERATIVE DIAGNOSIS: Left lower extremity hematoma and open wound. INDICATIONS: Mr. Hensley is a 64-year-old male who is on Coumadin, who fell and sustained a large bruise to his left lower extremity. It was quite swollen and I waited for the swelling to go down. The hematoma was so large that had necrosed off the skin on the medial aspect of the left lower extremity. I informed that this would not heal and that he would not grow skin over it as it was an open wound and that we would put some Kerecis in there and that should do the trick as far as a growing new skin. He was okay with that and was aware of the risks including infection, bleeding, damage to nerves or vessels, need for further surgery and debridements, wound VAC and was aware he may have an open wound and he signed the consent. SURGEON: Farhan Huerta DO DESCRIPTION OF PROCEDURE: The patient was taken to the operative suite, laid in supine position, given general anesthetic, given 2 grams Ancef preoperatively. The left lower extremity was then prepped and draped in sterile fashion. Time out was performed. Everyone was in agreement with the correct side, site, patient, and procedure. He had been sedated and LMA was placed. The timeout had been performed after prepping and draping. We then began by debriding the wound. An incision was made an elliptical type incision over the open wound, which is approximately 2 x 2 cm and then expressed out of the hematoma, it quite large and then left a gap of 4 cm x 2 cm x 2 cm in depth and then irrigated out with over a liter of normal saline and then folded in a 7 x 10 piece Kerecis and then sutured that in with 4-0 Monocryl in a simple fashion. We then put Adaptic on top of that and put a Prevena plus VAC on and held suction very well. This was then wrapped in an Micheal wrap. He was awakened and taken to recovery in stable condition. BLOOD LOSS: Minimal. COMPLICATIONS: None. TRANSINT:[id number] Voice Confirmation ID: [id number] DOCUMENT ID: [id number] FARHAN HUERTA DO at 1034 CC: [id number] DICTATION DATE: 01/22/20 1426 TERMINAL GAUGER SUPERVISOR: 01/22/[address] [place] [address] 01/22/20 [place] [id number]
== END 2020-01-22 15:40 | disposition home or self-care (01) ==
LOC: D.OPS 10:20 → D.PAN 12:15 → D.OPS 14:40 → D.PAN 15:45 → D.OPS 15:45
PROVIDERS: Anesthesiology; ATTEND Orthopaedic Surgery
DX: S81.802A Unspecified open wound, left lower leg, initial encounter (principal); Z79.01 Long term (current) use of anticoagulants; W19.XXXA Unspecified fall, initial encounter; Y93.9 Activity, unspecified; Y92.9 Unspecified place or not applicable; I10 Essential (primary) hypertension

== ENCOUNTER 2020-02-05 05:06 | Day surgery (SDC) | payer MEDICARE ==
[~2020-02-05] VITALS: Ht 182.9 cm; Wt 92.5 kg
[2020-02-05 05:30] LABS: HEMATOCRIT 37.1 % (42.0-54.0); MCH 29.6 pg (26.0-34.0); MCHC 32.3 g/dL (31.0-37.0); MCV 91.4 fL (80.0-100.0); MEAN PLATELET VOLUME 9.3 fL (7.4-10.4); RBC 4.06 10x6/uL (4.20-6.10); RDW 14.3 % (11.5-14.5); WBC 5.6 10x3/uL (4.8-10.8)
[2020-02-05 05:40] LABS: APTT 45.3 SECONDS (22.8-39.4); INR 2.54 (0.85-1.17)
[2020-02-05 06:11] VITALS: BP 161/91; Ht 182.9 cm; Wt 92.5 kg
[2020-02-05] MEDS ORDERED: DILAUDID4 MG PO (08:39)
--- NOTE | 2020-02-05 09:57 | NUR ---
0933 IV DC'D. CATHETER TIP INTACT. NO BLEEDING AT SITE. BANDAID APPLIED. PT STATES HE IS FAMILIAR AND COMFORTABLE IN TAKING CARE OF THE WOUND VAC ATTACHED TO LLE. DISCHARGE INSTRUCTIONS GIVEN EARLIER AND PT VOICES UNDERSTANDING OF INSTRUCTIONS.
--- NOTE | 2020-02-05 14:44 | OP ---
PATIENT NAME: CECILY HENSLEY MEDICAL RECORD: [id number] :51 LOCATION:[facility] ADMISSION DATE: SURGEON: AGUSTÍN HUERTA DO DATE OF OPERATION: 02/05/2020 PROCEDURE PERFORMED: Left lower extremity open wound debridement with Kerecis application and wound VAC application. PREOPERATIVE DIAGNOSIS: Left lower extremity open wound. POSTOPERATIVE DIAGNOSIS: Left lower extremity open wound. INDICATIONS: Mr. Hensley is a 64-year-old male, who had a fall a month or so ago and ended up getting a hematoma because he is on blood thinners and an open wound on the left lower extremity. Two weeks ago, I put in Kerecis because the wound was a 3 cm deep and then it had filled in quite nicely; however, it still had about a 0.5 cm to go in order to come to the level of the skin and so we did another application today. He was aware of the risks including infection, bleeding, damage to nerves or vessels, need for further surgery, continued pain and open wound. He was then informed of all that and he signed the consent. SURGEON: Agustín Huerta DO DESCRIPTION OF PROCEDURE: The patient was taken to the operative suite after given a block by anesthesia in the preoperative area, laid in the supine position, given general anesthetic and a gram of Ancef. The patient was sedated and LMA was placed. The left lower extremity was then prepped and draped in sterile fashion. Timeout was performed. Everyone was in agreeance with the correct side, site, patient and procedure. We then began by debriding the wound with a 10-blade scalpel rather, getting bleeding edges on it. A 3 x 7 Kerecis graft was then placed in the wound and sutured in with 3-0 Monocryl. We then put an Adaptic over that and it was irrigated prior to putting the Kerecis in with 300 mL normal saline. The Kerecis was then sutured in and then a Prevena plus VAC was applied. He was then awakened and taken to recovery in stable condition. BLOOD LOSS: Minimal. COMPLICATIONS: None. TRANSINT:[id number] Voice Confirmation ID: [id number] DOCUMENT ID: [id number] AGUSTÍN HUERTA DO at 1444 CC: [id number] DICTATION DATE: 02/05/20 0851 SHOE TURNER: 02/05/20 1441 [facility] 02/05/20 2040 [place] [address]
== END 2020-02-05 09:44 | disposition home or self-care (01) ==
LOC: D.OPS 05:06 → D.PAN 16:15 → D.OPS 16:15
PROVIDERS: Anesthesiology; ATTEND Orthopaedic Surgery
DX: S81.802A Unspecified open wound, left lower leg, initial encounter (principal); X58.XXXA Exposure to other specified factors, initial encounter; D68.9 Coagulation defect, unspecified; I10 Essential (primary) hypertension; Z79.01 Long term (current) use of anticoagulants